=== PATIENT | male | born 1980 | race Caucasian/White ===

== ENCOUNTER 2022-04-27 11:09 | Day surgery (SDC) | payer OTHER ==
[2022-04-22 15:03] VITALS: BMI 25.7
[2022-04-27 12:42] VITALS: PULSE 80
[2022-04-27 12:57] VITALS: BP 116/74; RESP 18; TEMP 97.9
== END 2022-04-27 13:00 | disposition home or self-care (01) ==
LOC: FASU-ENDO 11:09
PROVIDERS: ATTEND Internal Medicine Gastroenterology
PROC: 0DB68ZX Excision of Stomach, Via Natural or Artificial Opening Endoscopic, Diagnostic (ICD-10-PCS; 2022-04-27)
PROC: 0DB48ZX Excision of Esophagogastric Junction, Via Natural or Artificial Opening Endoscopic, Diagnostic (ICD-10-PCS; 2022-04-27)
PROC: 0DB98ZX Excision of Duodenum, Via Natural or Artificial Opening Endoscopic, Diagnostic (ICD-10-PCS; principal; 2022-04-27 12:20)
DX: K29.50 Unspecified chronic gastritis without bleeding (principal); K21.00 Gastro-esophageal reflux disease with esophagitis, without bleeding; R14.0 Abdominal distension (gaseous)
CPT/HCPCS: 88305-TC; 88342-TC